=== PATIENT | female | born 1965 | race Caucasian/White ===

== ENCOUNTER 2018-12-05 00:06 | Emergency (ER) | payer OTHER ==
--- NOTE | 2018-12-05 01:27 | EDM.PDOC ---
ED HPI GENERAL MEDICAL PROBLEM - General Chief Complaint: ENT Problem Stated Complaint: LEFT SIDE FACE PAIN, NUMB Time Seen by Provider: 12/05/18 01:22 Source of Information: Reports: Patient History Limitations: Reports: No Limitations - History of Present Illness INITIAL COMMENTS - FREE TEXT/NARRATIVE: pt has a tiny spot of numbness on her lower lip. She has pain in one of her lower molars. She does not have gum swelling. She at first thought she had a sinus infection. b Onset: Gradual, Other (problems for the last 36 hours. She did call her dentist in [facility] and he ordered amoxicillin . She is uncomfortable enough tonight that she is not going to be able to sleep. She has no facial deviation. ) Duration: Hour(s): Location: Reports: Face Associated Symptoms: Reports: No Other Symptoms left tooth pain Pain Score (Numeric/FACES): 7 ED ROS ENT - Review of Systems Review Of Systems: See Below Constitutional: Reports: No Symptoms HEENT: Reports: Dental Pain Respiratory: Reports: No Symptoms Cardiovascular: Reports: No Symptoms Endocrine: Reports: No Symptoms GI/Abdominal: Reports: No Symptoms : Reports: No Symptoms Musculoskeletal: Reports: No Symptoms ED EXAM, ENT - Physical Exam Exam: See Below Text/Narrative:: pt arrived with pain in one of her lower molars She has one spot that is numb. She has no facial deviation an she is able to wrinkle her forehead. Her eye closes well. Exam Limited By: No Limitations General Appearance: Alert, Mild Distress Ears: Normal TMs Nose: Normal Inspection Mouth/Throat: Other (pt is tender when one of her lower molars is pushed downward. She does not have swelling of the gum area. ) Head: Atraumatic Neck: Normal Inspection Respiratory/Chest: No Respiratory Distress Course - Vital Signs Last Recorded V/S: Last Vital Signs Temp 35.5 C 12/05/18 01:19 Pulse 113 H 12/05/18 01:19 Resp 16 12/05/18 01:19 BP 147/87 H 12/05/18 01:19 Pulse Ox 99 12/05/18 01:19 Departure - Departure Time of Disposition: 01:29 Disposition: Home, Self-Care 01 Condition: Fair Clinical Impression: Infected tooth - Discharge Information Referrals: Jone Samuel [facility] [Primary Care Provider] - Care Plan Goals: keep dental; appt for tomorrow, norco 5/325 q6h prn for pain #4 continue amoxicilluin
== END 2018-12-05 01:41 | disposition home or self-care (01) ==
LOC: JP.ED 00:06
DX: K04.7 Periapical abscess without sinus (principal)
CPT/HCPCS: 99283

== ENCOUNTER 2025-02-22 06:35 | Day surgery (SDC) | payer MEDICAID ==
[2025-02-22] MEDS: Lactated Ringers 1,000 ML IV SCH (07:11)
[2025-02-22] MEDS ORDERED: Propofol 200 MG/20 ML SDV ONE ×2 (07:23→07:55)
[2025-02-22] MEDS ORDERED: Midazolam 1 MG/ML 2 ML SDV ONE (07:23)
[2025-02-22] MEDS ORDERED: fentaNYL 50 MCG/ML SDV ONE (07:23)
== END 2025-02-22 09:18 | disposition home or self-care (01) ==
LOC: JP.SDS 06:35
PROVIDERS: ATTEND Surgery
DX: Z12.11 Encounter for screening for malignant neoplasm of colon (principal); K57.30 Diverticulosis of large intestine without perforation or abscess without bleeding; Z88.2 Allergy status to sulfonamides
CPT/HCPCS: 45378; J2250; J2704; J3010; J7120; 00812-QZ